=== PATIENT | male | born 1975 | race Caucasian/White ===

== ENCOUNTER → 2017-05-12 | Outpatient (CLI) | payer OTHER ==
[~2017-05-12] MED LIST: LOSA1TAB18 PO; NEBI5TAB2 PO
[2017-05-12 15:34] LABS: PATH.CAST-FLAG NOT PRESENT; SPERM-FLAG NOT PRESENT; SRC-FLAG NOT PRESENT; XTAL-FLAG NOT PRESENT; YLC-FLAG NOT PRESENT
[2017-05-12 15:42] LABS: ASPARTATE AMINO TRANSFERASE 17 U/L (15-37); BLOOD UREA NITROGEN 16 mg/dL (7-18)
== END | disposition home or self-care (01) ==
LOC: STAR 14:38
PROVIDERS: ATTEND Urology
DX: Z01.818 Encounter for other preprocedural examination (principal); N20.0 Calculus of kidney
CPT/HCPCS: 36415; 80053; 81001; 87086

== ENCOUNTER 2017-05-17 12:15 | Day surgery (SDC) | payer OTHER ==
[~2017-05-17] VITALS: Ht 188 cm; Wt 120.5 kg
[2017-05-17] MEDS ORDERED: LACTATED RINGERS 1,000 ML IV SCH (12:37)
[2017-05-17 12:40] VITALS: BP 131/91
[2017-05-17] MEDS ORDERED: FENTANYL PF 250 MCG/5ML ONE (14:35)
[2017-05-17] MEDS ORDERED: PROPOFOL 10 MG/ML, 20ML ONE (14:38)
[2017-05-17] MEDS ORDERED: METOCLOPRAMIDE 5 MG/ML, 2ML ONE (14:38)
[2017-05-17] MEDS ORDERED: KETOROLAC 30 MG/1 ML ONE (14:38)
[2017-05-17] MEDS ORDERED: ONDANSETRON 2MG/ML, 2ML ONE (14:38)
[2017-05-17] MEDS ORDERED: ROCURONIUM 10 MG/ML ONE (14:38)
[2017-05-17] MEDS ORDERED: DEXAMETHASONE 4 MG/ML, 1ML ONE (14:38)
[2017-05-17] MEDS ORDERED: LABETALOL 5MG/ML, 20ML IV PRN (15:00)
[2017-05-17] MEDS ORDERED: FENTANYL PF 100 MCG/2ML IV PRN (15:00)
[2017-05-17] MEDS ORDERED: hydrALAzine 20 MG/ML, 1ML IV PRN (15:00)
[2017-05-17] MEDS ORDERED: ONDANSETRON 2MG/ML, 2ML IVPush PRN (15:00)
[2017-05-17] MEDS ORDERED: MEPERIDINE/PF 25MG/0.5ML IVPush PRN (15:00)
[2017-05-17] MEDS ORDERED: MIDAZOLAM 1 MG/ML, 2ML IV PRN (15:00)
[2017-05-17] MEDS ORDERED: OXYcodone 5 MG/5 ML ORAL.SOL UDC PO PRN (15:00)
[2017-05-17] MEDS ORDERED: HYDROmorphone 1 MG/ML, 1ML IV PRN (15:00)
[2017-05-17] MEDS ORDERED: PROMETHAZINE 25 MG/ML, 1ML IV PRN (15:00)
[2017-05-17] MEDS ORDERED: OMNIPAQUE 350 MG/ML, 50 ML BOTTLE IV ONE (15:06)
[2017-05-17] MEDS ORDERED: OMNIPAQUE 350 MG/ML, 50 ML BOTTLE ONE (15:40)
[2017-05-17] MEDS ORDERED: OPIUM/BELLADONNA SUPP.RECT 16.2-60 MG PR PRN (16:00)
[2017-05-17] MEDS ORDERED: ONDANSETRON 2MG/ML, 2ML IV PRN (16:00)
[2017-05-17] MEDS ORDERED: OXYcodone/APAP 5/325MG TABLET PO PRN (16:00)
[2017-05-17] MEDS ORDERED: PHENAZOPYRIDINE 200 MG TABLET PO PRN (16:00)
[2017-05-17] MEDS ORDERED: KETOROLAC 30 MG/1 ML IV PRN (16:00)
[2017-05-17] MEDS ORDERED: OXYcodone 5 MG/5 ML ORAL.SOL UDC ONE (16:20)
== END 2017-05-17 17:30 | disposition home or self-care (01) ==
LOC: OUT 12:15
PROVIDERS: ATTEND Urology
DX: N20.0 Calculus of kidney (principal); I10 Essential (primary) hypertension; E66.9 Obesity, unspecified; Z68.34 Body mass index [BMI] 34.0-34.9, adult; Z80.9 Family history of malignant neoplasm, unspecified; Z72.89 Other problems related to lifestyle
CPT/HCPCS: 52332; 74420; C1726; C2617; J1100; J1885; J2405; J2704; J2765; J3010; J7120; Q9967